=== PATIENT | female | born 1975 | race Caucasian/White ===

== ENCOUNTER 2017-07-08 10:20 | Emergency (ER) | payer OTHER, BC ==
[~2017-07-08 10:20] MED LIST: ESOM20CA31 PO; IBU800 PO; L-NO1TBD6 PO; METO25TA93 PO; PER PO
[2017-07-08] MEDS ORDERED: B (10:57)
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
[2017-07-08] MEDS ORDERED: DICL-195 PO (12:11)
[2017-07-08 12:15] VITALS: BP 133/82
== END 2017-07-08 12:19 | disposition home or self-care (01) ==
LOC: ER 11:01
DX: S06.0X0A Concussion without loss of consciousness, initial encounter (principal)
CPT/HCPCS: 70450; 99282

== ENCOUNTER → 2017-08-29 | Outpatient (CLI) | payer BC ==
[~2017-08-29] MED LIST changes: +B; +DICL-195 PO
--- NOTE | 2017-09-01 18:02 | RADIOLOGY IMAGING REPORT ---
FACILITY: [facility] PATIENT NAME: MIGUEL ANGEL GREGG : [id number] MR: [id number] V: [id number] EXAM DATE: [id number] ORDERING PHYSICIAN: NESTOR PAL TECHNOLOGIST: Gillian Gaspar PROCEDURE:BILATERAL DIGITAL SCREENING MAMMOGRAM WITH CAD ASSISTED INTERPRETATION & 3D TOMOSYNTHESIS COMPARISON:None. INDICATIONS:SCREENING FINDINGS: A small amount of fibroglandular tissue is seen throughout the breasts. Just lateral to the midline on the Left CC view in the anterior 1/3 is an ovoid area of increased density may represent an intramammary lymph node. This appears to be in the upper portion Left breast on the Left MLO view. A Left breast Ultrasound is recommended. DIAGNOSTIC CATEGORY 0--INCOMPLETE: NEED ADDITIONAL IMAGING EVALUATION. RECOMMENDATIONS: ULTRASOUND: LEFT BREAST. IMPRESSION: BIRADS 0: Incomplete. Left breast Ultrasound recommended as described. Dictated by: Yanet Mcfarland M.D. on 09/01/2017 at 11:14 Transcribed by: BEKAH on 09/01/2017 at 13:34 Approved by: Yanet Mcfarland M.D. on 09/01/2017 at 18:01 [facility]
== END ==
LOC: MAMO 01:18
PROVIDERS: ATTEND Obstetrics & Gynecology
DX: Z12.31 Encounter for screening mammogram for malignant neoplasm of breast (principal); R92.8 Other abnormal and inconclusive findings on diagnostic imaging of breast
CPT/HCPCS: 77063; 77067

== ENCOUNTER → 2017-09-10 | Outpatient (CLI) | payer BC ==
--- NOTE | 2017-09-11 11:55 | RADIOLOGY IMAGING REPORT ---
FACILITY: [facility] - [place] PATIENT NAME: MIGUEL ANGEL GREGG : [id number] MR: [id number] V: [id number] EXAM DATE: ORDERING PHYSICIAN: NESTOR PAL TECHNOLOGIST: Rupinder Marina RDMS(ABD,OBGYN,BR),RVT PROCEDURE:US LEFT BREAST COMPARISON:Prior mammogram 09/01/17 INDICATIONS:further evaluation FINDINGS: The entire Left breast was imaged sonographically revealing no sonographically detectable masses cystic or solid. Since the last circumscribed ovoid area in the upper outer quadrant of the Left breast could not be seen a 6 month follow-up Left mammogram is recommended unless clinical findings warrant more immediate attention. DIAGNOSTIC CATEGORY 3--PROBABLY BENIGN FINDING. RECOMMENDATIONS: SIX MONTH FOLLOW-UP DIAGNOSTIC MAMMOGRAM: LEFT BREAST. IMPRESSION: BIRADS 3: Probably benign finding. A 6 month follow-up Left mammogram is recommend as described. Dictated by: Yanet Mcfarland M.D. on 09/10/2017 at 16:11 Transcribed by: BEKAH on 09/11/2017 at 8:54 Approved by: Yanet Mcfarland M.D. on 09/11/2017 at 11:54 [facility]
== END ==
LOC: US 01:30
PROVIDERS: ATTEND Obstetrics & Gynecology
DX: R92.8 Other abnormal and inconclusive findings on diagnostic imaging of breast (principal)

== ENCOUNTER → 2018-02-02 | Outpatient (CLI) | payer BC ==
--- NOTE | 2018-02-02 15:49 | RADIOLOGY IMAGING REPORT ---
FACILITY: [facility] PATIENT NAME: MIGUEL ANGEL GREGG : [id number] MR: [id number] V: [id number] EXAM DATE: ORDERING PHYSICIAN: LESLEY CASTILLO TECHNOLOGIST: Gillian Gaspar PROCEDURE:LEFT DIGITAL DIAGNOSTIC MAMMOGRAM WITH CAD ASSISTED INTERPRETATION & 3D TOMOSYNTHESIS COMPARISON:Prior mammogram 08/29/2017. INDICATIONS:Focal asymmetry Left breast. FINDINGS: Again seen is a 4mm well circumscribed lesion in the upper outer quadrant of the Left breast, anterior 1/3 for depth. This demonstrates well circumscribed smooth borders, and is unchanged from the comparison 08/29/2017. DIAGNOSTIC CATEGORY 2--BENIGN FINDING. RECOMMENDATIONS: ROUTINE MAMMOGRAM IN 1 YR AND CLINICAL EVALUATION. IMPRESSION: BIRADS 2: Benign finding. Stable 4mm lesion upper outer quadrant of the Left breast, unchanged from 08/29/2017. A prior Ultrasound 09/10/2017 was read, and is negative. Dictated by: Juan Miguel Garcia M.D. on 02/02/2018 at 14:24 Transcribed by: BEKAH on 02/02/2018 at 14:35 Approved by: Juan Miguel Garcia M.D. on 02/02/2018 at 15:47 [facility]
== END ==
LOC: US 02:44
PROVIDERS: ATTEND Obstetrics & Gynecology
DX: N63.21 Unspecified lump in the left breast, upper outer quadrant (principal)
CPT/HCPCS: 77061; 77065